=== PATIENT | male | born 1945 | race Caucasian/White ===

== ENCOUNTER 2017-08-11 12:26 | Observation (INO) | payer OTHER ==
[~2017-08-11] VITALS: Ht 182.9 cm; Wt 96.0 kg
[~2017-08-11 12:26] MED LIST: ADVAIR HFA120 INHALA IH; AZITHROMYCIN250 MG1 PO; COUMADIN5 MG PO; DOXYCYCLINE HY100 MG PO; ENALAPRIL-HCTZ1 EAC1 PO; FLONASE16 G1 BOTH NARES; GLIMEPIRIDE4 MG PO; GLYBURIDE5 MG PO; HYTRIN5 MG PO; JANUVIA100 MG PO; LANTUS 10100 UNITS/ SC; LOPRESSOR25 MG PO; LORAZEPAM1 MG PO; MORPHINE SULFAT10 M3 PO; NAPROSYN500 MG PO; NOVOLOG PE100 UNITS/ SC; ONDANSETRON HCL4 MG PO; PANTOPRAZOLE SO40 MG PO; PRAVASTATIN SOD40 MG PO; PROVENTIL,2.5 MG/3 M IH; SPIRIVA RESPIMAT4 GM IH; TRAMADOL HCL50 MG PO; WARFARIN SODIUM5 MG PO; ZOLOFT100 MG PO
[2017-08-11 13:41] LABS: HEMATOCRIT 40.4 % (38.0-50.0); HEMOGLOBIN 13.8 G/DL (12.5-16.6); MCH 29.2 PG (29.0-34.0); MCHC 34.2 G/DL (30.0-36.0); MCV 85.6 FL (86-99); PLATELET COUNT 124 K/uL (156-360); RBC DIS.WIDTH-CV 15.8 % (11.8-14.6); RBC DIS.WIDTH-SD 49.9 % (39-53); RED BLOOD COUNT 4.72 M/uL (4.00-5.50); WHITE BLOOD COUNT 5.6 K/uL (4.1-10.2)
[2017-08-11 13:52] LABS: CHLORIDE 97 mEq/L (99-109); POTASSIUM 4.6 mEq/L (3.7-5.4); SODIUM 129 mEq/L (136-147)
[2017-08-11 13:57] LABS: CREATININE 1.3 mg/dL (0.6-1.3); GFR ESTIMATE (CALCULATED) 58 mL/min/ (58.99-99999)
[2017-08-11 13:58] LABS: PTT 27.4 SEC (25-37); UREA NITROGEN (BUN) 26 mg/dL (9-23)
[2017-08-11 14:01] LABS: TROP-I INTERPRETATION NEGATIVE; TROPONIN-I < 0.01 ng/mL (0.0-0.30)
[2017-08-11 14:10] LABS: GLUCOSE 296 mg/dL (70-99)
[2017-08-11] MEDS ORDERED: TAFINLAR50 MG PO (15:09)
[2017-08-11] MEDS ORDERED: MEKINIST0.5 MG PO (15:09)
[2017-08-11] MEDS ORDERED: NAPROSYN500 MG PO (15:10)
[2017-08-11] MEDS ORDERED: VENTOLIN HFA18 GM IH (15:11)
[2017-08-11 16:24] VITALS: BP 141/66
[2017-08-11 20:00] VITALS: BP 150/74
[2017-08-11 23:15] VITALS: BP 150/71
[2017-08-12 05:31] LABS: ALBUMIN 3.3 G/DL (3.2-4.8); ALT (GPT) 31 IU/L (3-49); AST (GOT) 48 IU/L (2-34); CHLORIDE 99 MEQ/L (99-109); CREATININE 1.1 MG/DL (0.6-1.3); GFR ESTIMATE (CALCULATED) > 59 mL/min/ (58.99-99999); POTASSIUM 4.1 MEQ/L (3.7-5.4); SODIUM 133 MEQ/L (136-147); TOTAL PROTEIN 5.8 G/DL (6.4-8.3); UREA NITROGEN (BUN) 21 mg/dL (9-23)
[2017-08-12 05:32] LABS: ALKALINE PHOSPHATASE 80 IU/L (3-129); GLUCOSE 127 mg/dL (70-99); TOTAL BILIRUBIN 0.5 MG/DL (0.0-1.0)
[2017-08-12 05:33] LABS: HEMATOCRIT 40.5 % (38.0-50.0); HEMOGLOBIN 13.4 G/DL (12.5-16.6); MCH 28.3 PG (29.0-34.0); MCHC 33.1 G/DL (30.0-36.0); MCV 85.6 FL (86-99); PLATELET COUNT 116 K/uL (156-360); RBC DIS.WIDTH-CV 15.8 % (11.8-14.6); RBC DIS.WIDTH-SD 49.6 % (39-53); RED BLOOD COUNT 4.73 M/uL (4.00-5.50); WHITE BLOOD COUNT 4.5 K/uL (4.1-10.2)
[2017-08-12 09:40] VITALS: BP 161/77
== END 2017-08-12 12:15 | disposition home or self-care (01) ==
LOC: EME 12:26 → EDOF 14:57 → 4SOUTH 14:57 → ENRESERV 15:14 → 4SOUTH 16:03
PROVIDERS: Emergency Medicine; Internal Medicine
DX: I95.9 Hypotension, unspecified (principal); R09.02 Hypoxemia; C43.9 Malignant melanoma of skin, unspecified; C79.9 Secondary malignant neoplasm of unspecified site; I25.10 Atherosclerotic heart disease of native coronary artery without angina pectoris; E11.51 Type 2 diabetes mellitus with diabetic peripheral angiopathy without gangrene; I10 Essential (primary) hypertension; Z92.21 Personal history of antineoplastic chemotherapy; Z95.1 Presence of aortocoronary bypass graft; N40.0 Benign prostatic hyperplasia without lower urinary tract symptoms; Z79.4 Long term (current) use of insulin; Z87.891 Personal history of nicotine dependence; B37.0 Candidal stomatitis; E86.0 Dehydration; E78.5 Hyperlipidemia, unspecified; F32.9 Major depressive disorder, single episode, unspecified; Z82.49 Family history of ischemic heart disease and other diseases of the circulatory system; Z88.8 Allergy status to other drugs, medicaments and biological substances
CPT/HCPCS: 70450; 80048; 80053; 82948; 83880; 84484; 85027; 85610; 85730; 93005; 94640; 94640 76; 99202; 99281; 99284; G0378; J7030

== ENCOUNTER 2017-10-07 10:26 | Emergency (ER) | payer OTHER ==
[~2017-10-07] VITALS: Ht 182.9 cm; Wt 94.7 kg
[~2017-10-07 10:26] MED LIST changes: +MEKINIST0.5 MG PO; +TAFINLAR50 MG PO; +VENTOLIN HFA18 GM IH
[2017-10-07 11:18] LABS: HEMATOCRIT 43.2 % (38.0-50.0); HEMOGLOBIN 14.8 G/DL (12.5-16.6); MCH 30.5 PG (29.0-34.0); MCHC 34.3 G/DL (30.0-36.0); MCV 88.9 FL (86-99); PLATELET COUNT 153 K/uL (156-360); RBC DIS.WIDTH-CV 15.4 % (11.8-14.6); RBC DIS.WIDTH-SD 50.6 % (39-53); RED BLOOD COUNT 4.86 M/uL (4.00-5.50); WHITE BLOOD COUNT 7.5 K/uL (4.1-10.2)
[2017-10-07 11:37] LABS: APPEARANCE CLEAR ((CLEAR)); BILIRUBIN NEGATIVE; BLOOD NEGATIVE; COLOR YELLOW ((YELLOW)); GLUCOSE (STRIP) NEGATIVE; KETONES NEGATIVE; LEUKOCYTES NEGATIVE; NITRITE NEGATIVE; PROTEIN (STRIP) NEGATIVE; SPECIFIC GRAVITY 1.014 (1.000-1.030); UCUL ADDED? NO; UROBILINOGEN 0.2 MG/DL (0.2-1.0)
[2017-10-07 12:06] LABS: ALBUMIN 4.1 G/DL (3.2-4.8); ALKALINE PHOSPHATASE 83 IU/L (3-129); ALT (GPT) 17 IU/L (3-49); AST (GOT) 18 IU/L (2-34); CHLORIDE 103 MEQ/L (99-109); GFR ESTIMATE (CALCULATED) > 59 mL/min/ (58.99-99999); GLUCOSE 180 mg/dL (70-99); LIPASE 7 U/L (1.0-51.0); POTASSIUM 4.6 MEQ/L (3.7-5.4); SODIUM 141 MEQ/L (136-147); TOTAL BILIRUBIN 0.5 MG/DL (0.0-1.0); UREA NITROGEN (BUN) 16 mg/dL (9-23)
[2017-10-07] MEDS ORDERED: NORCO 5/3251 TABLET PO (15:42)
[2017-10-07] MEDS ORDERED: LEVAQUIN500 MG PO (15:42)
[2017-10-07 16:13] VITALS: BP 185/101
== END 2017-10-07 16:15 | disposition home or self-care (01) ==
LOC: EME 10:26
DX: N45.1 Epididymitis (principal); R30.0 Dysuria; R10.84 Generalized abdominal pain; I86.1 Scrotal varices; E11.9 Type 2 diabetes mellitus without complications; Z79.4 Long term (current) use of insulin; E78.5 Hyperlipidemia, unspecified; I10 Essential (primary) hypertension; Z86.73 Personal history of transient ischemic attack (TIA), and cerebral infarction without residual deficits; Z95.1 Presence of aortocoronary bypass graft; Z95.5 Presence of coronary angioplasty implant and graft; Z85.820 Personal history of malignant melanoma of skin; Z87.891 Personal history of nicotine dependence
CPT/HCPCS: 74177; 76870; 80053; 81003; 82948; 83690; 85027; 87086; 99281; 99284; J7040